=== PATIENT | male | born 1960 | race Caucasian/White ===

== ENCOUNTER 2016-12-16 21:36 | Emergency (ER) | payer SELFPAY ==
[2016-12-17] MEDS ORDERED: FLEXERIL PO ONE (02:24)
[2016-12-17] MEDS ORDERED: TORADOL IM ONE (02:24)
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
[2016-12-17 03:35] VITALS: BP 152/88
== END 2016-12-17 03:41 | disposition home or self-care (01) ==
LOC: ED 21:36
DX: S39.012A Strain of muscle, fascia and tendon of lower back, initial encounter (principal); V49.49XA Driver injured in collision with other motor vehicles in traffic accident, initial encounter; Y93.9 Activity, unspecified; Y92.9 Unspecified place or not applicable; Y99.9 Unspecified external cause status
CPT/HCPCS: 96372; 99283; J1885